=== PATIENT | female | born 1980 | race Asian ===

== ENCOUNTER 2018-07-04 10:42 | Outpatient (CLI) | payer OTHER | END 2018-07-04 21:38 | disposition home or self-care (01) | LOC: MAMMO 10:42 | DX: Z12.31 Encounter for screening mammogram for malignant neoplasm of breast (principal) ==

== ENCOUNTER 2019-10-30 08:58 | Outpatient (CLI) | payer OTHER | END 2019-10-30 19:01 | disposition home or self-care (01) | LOC: MAMMO 08:58 | DX: Z12.31 Encounter for screening mammogram for malignant neoplasm of breast (principal) ==

== ENCOUNTER 2021-02-18 07:54 | Outpatient (CLI) | payer OTHER | END 2021-02-18 18:57 | disposition home or self-care (01) | LOC: RESP 07:54 | PROVIDERS: ATTEND Obstetrics & Gynecology Gynecologic Oncology | DX: Z01.818 Encounter for other preprocedural examination (principal) | CPT/HCPCS: 93005 ==

== ENCOUNTER 2021-10-28 07:57 | Outpatient (CLI) | payer OTHER | END 2021-10-28 20:30 | disposition home or self-care (01) | LOC: MAMMO 07:57 | PROVIDERS: ATTEND Nurse Practitioner Family | DX: Z12.31 Encounter for screening mammogram for malignant neoplasm of breast (principal) ==

== ENCOUNTER 2023-02-09 08:38 | Outpatient (CLI) | payer OTHER | END 2023-02-09 18:56 | disposition home or self-care (01) | LOC: MAMMO 08:38 | PROVIDERS: ATTEND Nurse Practitioner Family | DX: Z12.31 Encounter for screening mammogram for malignant neoplasm of breast (principal) ==